=== PATIENT | female | born 1970 | race Caucasian/White ===

== ENCOUNTER 2017-11-24 09:29 | Emergency (ER) | payer BC ==
[2017-11-24] MEDS ORDERED: ONDANSETRON HCL IV 4 MG/2 ML VIAL IVP ONE (09:45)
[2017-11-24] MEDS ORDERED: CLINDAMYCIN 600MG/50ML PREMIX 600 MG/50 ML BAG IVPB ONE (09:45)
--- NOTE | 2017-11-24 09:58 | Emergency Department Record ---
History of Present Illness - General Chief complaint: Abscess Stated complaint: LUMP ON RT SHOULDER,VOMITING Time Seen by Provider: 11/24/17 09:39 Source: Patient Mode of Arrival: Ambulatory Limitations: No limitations - History of Present Illness Initial comments: The patient is here due to having an infection to the R shoulder for 3 days. She states she has a long hx of skin infections and abscesses and now feels she has another one. She did vomit once this AM and feels like she is having aching all over her body. There has been no fever, chills, AP or diarrhea. MD complaint: Abscess/boil Onset/Timin -: Days(s) Hx Tetanus Toxoid Vaccination: Yes Year of Tetanus Vaccination: 2004 Location: Generalized, RUE Severity scale (1-10): 7 Quality: Aching Consistency: Constant Improves with: None Worsens with: Palpation, Movement Context: None Associated symptoms: Denies other symptoms Treatments Prior to Arrival: None - Related Data Home Medications Medication Instructions Recorded Confirmed Last Taken Hydroxyzine HCl [Hydroxyzine HCl] 25 mg PO DAILY 11/24/17 11/24/17 Unknown Rosuvastatin Calcium [Crestor] 20 mg PO DAILY 11/24/17 11/24/17 Unknown Previous Rx's Medication Instructions Recorded Clindamycin HCl [Cleocin HCl] 300 mg PO QID #28 capsule 11/24/17 Ondansetron [Zofran Odt] 4 mg SL .Q4-6H PRN #12 tab.rapdis 11/24/17 Allergies Allergy/AdvReac Type Severity Reaction Status Date / Time latex Allergy BLISTERS Verified 11/30/15 19:53 codeine AdvReac ABDOMINAL Verified 02/02/14 02:35 CRAMPS Penicillins AdvReac HIVES Verified 02/02/14 02:35 Sulfa (Sulfonamide AdvReac ANAPHYLAXIS Verified 02/02/14 02:35 Antibiotics) Travel Screening - Travel/Exposure Within Last 30 Days Have you traveled within the last 30 days?: No Review of Systems Constitutional: Reports: Malaise. Denies: Chills, Fever Eyes: Denies: Eye discharge ENT: Denies: Congestion Respiratory: Denies: Cough Past Medical History - SOCIAL HISTORY Smoking Status: Never smoker - RESPIRATORY Hx Respiratory Disorders: Yes Hx Asthma: Yes Hx Bronchitis: Yes Hx COPD: No Hx Dyspnea: No Hx Pneumonia: Yes Hx Pulmonary Embolism: No Hx Sleep Apnea: No Hx Tuberculosis: No - CARDIOVASCULAR Hx Cardio Disorders: No - NEURO Hx Neuro Disorders: No - GI Hx GI Disorders: Yes Hx Abdominal Pain: No Hx Celiac Disease: No Hx Crohn's Disease: No Hx Diverticulitis: No Hx GI Bleed: No Hx Reflux: Yes Hx Hepatitis/Jaundice: No Hx Hiatal Hernia: No Hx Irritable Bowel: No Hx Liver Disease: No Hx Nausea/Vomiting: No Hx Obstructive Bowel: No Hx Pancreatitis: No Hx Rectal Bleeding: No Hx Ulcer: No Hx Wt Loss/Wt Gain: No - Hx Genitourinary Disorders: Yes Hx Bladder Problem: No Hx Dialysis: No Hx Kidney Stones: No Hx Renal Disease: No Hx UTI: Yes - ENDOCRINE Hx Endocrine Disorders: No - MUSCULOSKELETAL Hx Musculoskeletal Disorders: No - PSYCH Hx Psych Problems: Yes Hx Anxiety: No Hx Behavior Problems: No Hx Depression: Yes Hx Emotional Abuse: No Hx Sexual Abuse: No Hx Suicide Attempt: No - HEMATOLOGY/ONCOLOGY Hx Hematology/Oncology Disorders: No Family Medical History Any Significant Family History?: No Physical Exam - General General Appearance: Alert, Oriented x3, Cooperative, No acute distress - Head Head exam: Atraumatic, Normocephalic, Normal inspection - Eye Eye exam: Normal appearance, PERRL - Neck Neck exam: Normal inspection, Full ROM. negative: Tenderness - Respiratory Respiratory exam: Normal lung sounds bilaterally. negative: Rales, Respiratory distress, Rhonchi, Stridor, Wheezes - Cardiovascular Cardiovascular Exam: Regular rate, Normal rhythm, Normal heart sounds - GI/Abdominal GI/Abdominal exam: Soft, Normal bowel sounds. negative: Tenderness - Extremities Extremities exam: Normal inspection, Full ROM, Normal capillary refill. negative: Tenderness - Back Back exam: Denies: Normal inspection (There is a 3x4 cm area of induration and erythema and tenderness to the posterior superior R shoulder area. It clearly is NOT fluctuant at this time.) Image of Body Front/Back: 1 - Area of infection. Course Vital Signs 11/24/17 09:34 Temperature 98.6 F Pulse Rate 118 H Respiratory 20 Rate Blood Pressure 141/97 Pulse Ox 93 L - Reevaluation(s) Reevaluation #1: The patient is doing a lot better at this time. Her pain is improved and she denies any nausea or vomiting. She is drinking fluids well with no difficulty. I did explain the need to continue the oral Abx's and to return to the ER in the AM tomorrow for recheck. 11/24/17 10:56 Medical Decision Making - Data Complexity MDM Data: Labs Ordered and/or Reviewed - Lab Data Result diagrams: 11/24/17 09:50 11/24/17 09:50 Disposition Disposition: Discharge Clinical Impression: Cellulitis Qualifiers: Site of cellulitis: unspecified site Qualified Code(s): L03.90 - Cellulitis, unspecified Disposition: Home, Self-Care Condition: (2) Stable Instructions: Cellulitis (ED) Additional Instructions: The patient is to use the Zofran for nausea and take Tylenol for body aches. She is to continue the Clindamycin as directed and to return to the ER at 8am tomorrow for recheck and another dose of IV Abx's. Prescriptions: Clindamycin HCl [Cleocin HCl] 300 mg PO QID #28 capsule Ondansetron [Zofran Odt] 4 mg SL .Q4-6H PRN #12 tab.rapdis PRN Reason: Nausea Forms: Patient Portal Access Time of Disposition: 10:58 Quality - Quality Measures Quality Measures: N/A - Blood Pressure Screening View Details: Yes Does Patient Have Any of the Following: No Blood Pressure Classification: Hypertensive Reading Systolic Measurement: 141 Diastolic Measurement: 97 Screening for High Blood Pressure: < First Hypertensive BP, F/U Documented > [ G8950] First Hypertensive Follow-up Interventions: Referral to alternative/primary care provider.
[2017-11-24 10:05] LABS: BASO % 0.2 % (0-6); EOS % 2.4 % (0-6); GRAN % 75.9 % (47-80); HEMATOCRIT 42.4 % (35.0-47.0); HEMOGLOBIN 14.4 gm/dl (11.6-16.0); LYMPH % 14.8 % (16-45); MEAN CELL VOLUME 87.4 fl (81-97); MEAN CORPUSCULAR HEMOGLOBIN 29.7 pg (27-33); MEAN PLATELET VOLUME 10.4 fl (7.4-10.4); MONO % 6.7 % (0-9); PLATELET COUNT 338 K/uL (130-400); RED BLOOD COUNT 4.85 M/uL (3.80-5.40); RED CELL DISTRIBUTION WIDTH 12.9 % (11.5-14.5); WHITE BLOOD COUNT W/O DIFF 12.7 K/uL (4.2-12.2)
[2017-11-24 10:41] LABS: ALB/GLOB RATIO 1.5 (1.1-1.8); ALBUMIN 5.1 g/dL (4.0-5.0); ALKALINE PHOSPHATASE 118 U/L (35-104); ALT/SGPT 59 U/L (<33); AST/SGOT 23 U/L (10.0-35.0); BLOOD UREA NITROGEN 14 mg/dL (6-20); C-REACTIVE PROTEIN 3.07 mg/dL (<0.5); CREATININE 0.7 mg/dL (0.5-0.9); EST GLOMERULAR FILTRATION RATE > 60 mL/min; GLUCOSE,RANDOM 140 mg/dL (74-109); TOTAL PROTEIN 8.4 g/dL (6.6-8.7)
[2017-11-24] MEDS ORDERED: KETOROLAC 30 MG/ML VIAL IVP ONE (10:46)
[2017-11-24] MEDS ORDERED: 0.9 % SODIUM CHLORIDE 1,000 ML BAG IV ONE (10:46)
== END 2017-11-24 11:05 | disposition home or self-care (01) ==
LOC: ER 09:29
DX: L03.113 Cellulitis of right upper limb (principal); R11.11 Vomiting without nausea
CPT/HCPCS: 99284 ×2; 96374; 96375; 85025; 86140; 80053; J2405

== ENCOUNTER 2017-11-25 08:50 | Emergency (ER) | payer BC ==
[2017-11-25] MEDS ORDERED: CLINDAMYCIN 600MG/50ML PREMIX 600 MG/50 ML BAG IVPB ONE (09:04)
[2017-11-25] MEDS ORDERED: 0.9 % SODIUM CHLORIDE 1,000 ML BAG IV ONE (09:11)
[2017-11-25] MEDS ORDERED: ONDANSETRON HCL IV 4 MG/2 ML VIAL IVP ONE (09:11)
--- NOTE | 2017-11-25 09:16 | Emergency Department Record ---
History of Present Illness - General Chief Complaint: Recheck - Other Stated Complaint: RECHECK Time Seen by Provider: 11/25/17 09:04 Source: Patient Mode of arrival: Ambulatory Limitations: No limitations - History of Present Illness Initial Comments: The patient is here for recheck of a R shoulder cellulitis. She has been taking her Clindamycin and using warm compresses on it. There are no new symptoms and she denies any fever or chills. MD Complaint: Wound re-check Onset/Timin -: Days(s) Initial Visit For: Abscess Returns Today for: Needs IV antibiotics Symptoms Since Prior Visit: No new symptoms Associated Symptoms: None - Related Data Previous Rx's Medication Instructions Recorded Clindamycin HCl [Cleocin HCl] 300 mg PO QID #28 capsule 11/24/17 Ondansetron [Zofran Odt] 4 mg SL .Q4-6H PRN #12 tab.rapdis 11/24/17 Allergies Allergy/AdvReac Type Severity Reaction Status Date / Time latex Allergy BLISTERS Verified 11/30/15 19:53 codeine AdvReac ABDOMINAL Verified 02/02/14 02:35 CRAMPS Penicillins AdvReac HIVES Verified 02/02/14 02:35 Sulfa (Sulfonamide AdvReac ANAPHYLAXIS Verified 02/02/14 02:35 Antibiotics) Travel Screening - Travel/Exposure Within Last 30 Days Have you traveled within the last 30 days?: No Review of Systems Constitutional: Reports: Malaise. Denies: Chills, Fever Past Medical History - SOCIAL HISTORY Smoking Status: Never smoker - RESPIRATORY Hx Respiratory Disorders: Yes Hx Asthma: Yes Hx Bronchitis: Yes Hx COPD: No Hx Dyspnea: No Hx Pneumonia: Yes Hx Pulmonary Embolism: No Hx Sleep Apnea: No Hx Tuberculosis: No - CARDIOVASCULAR Hx Cardio Disorders: No - NEURO Hx Neuro Disorders: No - GI Hx GI Disorders: Yes Hx Abdominal Pain: No Hx Celiac Disease: No Hx Crohn's Disease: No Hx Diverticulitis: No Hx GI Bleed: No Hx Reflux: Yes Hx Hepatitis/Jaundice: No Hx Hiatal Hernia: No Hx Irritable Bowel: No Hx Liver Disease: No Hx Nausea/Vomiting: No Hx Obstructive Bowel: No Hx Pancreatitis: No Hx Rectal Bleeding: No Hx Ulcer: No Hx Wt Loss/Wt Gain: No - Hx Genitourinary Disorders: Yes Hx Bladder Problem: No Hx Dialysis: No Hx Kidney Stones: No Hx Renal Disease: No Hx UTI: Yes - ENDOCRINE Hx Endocrine Disorders: No - MUSCULOSKELETAL Hx Musculoskeletal Disorders: No - PSYCH Hx Psych Problems: Yes Hx Anxiety: No Hx Behavior Problems: No Hx Depression: Yes Hx Emotional Abuse: No Hx Sexual Abuse: No Hx Suicide Attempt: No - HEMATOLOGY/ONCOLOGY Hx Hematology/Oncology Disorders: No Family Medical History Any Significant Family History?: No Physical Exam - General General Appearance: Alert, Cooperative, No acute distress - Head Head exam: Atraumatic, Normocephalic - Eye Eye exam: Normal appearance, PERRL - Back Back exam: Denies: Normal inspection (There is a cellulitis measuring 4x4 cm to the superior posterior R back/shoulder area. There now is a central area of purulence coming to a head in the central portion of the wound.) Course Vital Signs 11/25/17 08:58 Temperature 99.0 F Pulse Rate 115 H Respiratory 18 Rate Blood Pressure 145/92 Pulse Ox 94 L - Reevaluation(s) Reevaluation #1: Procedure note: The central purulent area of the wound was cleansed with betadine and unroofed with a # 11 blade. A small amount of purulence was expressed and cultured. 11/25/17 09:15 Reevaluation #2: After the first procedure I did offer to anesth. the area and formally open the area up. The patient is declining that plan and would like to wait for a day or two. She is to continue the oral Abx's and warm compresses and return to the ER in 1-2 days if not better. 11/25/17 10:09 Disposition Disposition: Discharge Clinical Impression: Cellulitis Qualifiers: Site of cellulitis: unspecified site Qualified Code(s): L03.90 - Cellulitis, unspecified Disposition: Home, Self-Care Condition: (2) Stable Instructions: Cellulitis (ED) Additional Instructions: Please continue the Clindamycin as directed and use the Zofran if needed. Please see your family doctor if not better in 1-2 days and return to the ER for any worsening symptoms of pain, or for any increased redness, swelling, or fever. Forms: Patient Portal Access Time of Disposition: 10:11 Quality - Quality Measures Quality Measures: N/A - Blood Pressure Screening View Details: Yes Does Patient Have Any of the Following: No Blood Pressure Classification: Pre-Hypertensive BP Reading Systolic Measurement: 162 Diastolic Measurement: 88 Screening for High Blood Pressure: < Pre-Hypertensive BP, F/U Documented > [ G8950] Pre-Hypertensive Follow-up Interventions: Referral to alternative/primary care provider.
== END 2017-11-25 10:23 | disposition home or self-care (01) ==
LOC: ER 08:50
DX: L03.113 Cellulitis of right upper limb (principal)
CPT/HCPCS: 11042 ×2; 99283 ×2; 96374; 96375; J2405; J7030

== ENCOUNTER 2019-04-24 16:27 | Emergency (ER) | payer BC ==
--- NOTE | 2019-04-24 17:34 | Emergency Department Record ---
History of Present Illness - General Chief complaint: Extremity Problem Stated complaint: LUMP BACK RT LEG Time Seen by Provider: 04/24/19 17:20 Source: Patient Mode of Arrival: Ambulatory Limitations: No limitations - History of Present Illness Initial comments: The patient is here due to noticing pain and swelling to her R lower leg today after the dog ran into it. She denies any Cp, SOB, DENNISE, or sweating. The patient has no hx of DVT but is very concerned about it due to her sister having a hx of blood clots. MD Complaint: Extremity pain Onset/Timin -: Days(s) Location: Right, Lower Leg History of Same: No Radiation: None Quality: Burning Consistency: Constant, Intermittent Improves with: Rest Worsens with: Palpation Associated Symptoms: Denies other symptoms - Related Data Home Medications Medication Instructions Recorded Confirmed Last Taken Phentermine HCl [Adipex-P] 37.5 mg PO DAILY 04/24/19 04/24/19 04/24/19 Topiramate [Topamax] 25 mg PO DAILY 04/24/19 04/24/19 04/24/19 Allergies Allergy/AdvReac Type Severity Reaction Status Date / Time latex Allergy BLISTERS Verified 04/24/19 17:14 codeine AdvReac ABDOMINAL Verified 04/24/19 17:14 CRAMPS Penicillins AdvReac HIVES Verified 04/24/19 17:14 Sulfa (Sulfonamide AdvReac ANAPHYLAXIS Verified 04/24/19 17:14 Antibiotics) Travel Screening - Travel/Exposure Within Last 30 Days Have you traveled within the last 30 days?: No - Travel/Exposure Within Last Year Have you traveled outside the [place] in the last year?: No - Additonal Travel Details Have you been exposed to anyone with a communicable illness?: No - Travel Symptoms Symptom Screening: None Review of Systems Constitutional: Denies: Chills, Fever Eyes: Denies: Eye discharge ENT: Denies: Congestion Respiratory: Denies: Cough, Dyspnea Cardiovascular: Denies: Arrhythmia Past Medical History - SOCIAL HISTORY Smoking Status: Never smoker Alcohol Use: Occasional Drug Use: None - RESPIRATORY Hx Respiratory Disorders: Yes Hx Asthma: Yes Hx Bronchitis: Yes Hx COPD: No Hx Dyspnea: No Hx Pneumonia: Yes Hx Pulmonary Embolism: No Hx Sleep Apnea: No Hx Tuberculosis: No - CARDIOVASCULAR Hx Cardio Disorders: No - NEURO Hx Neuro Disorders: No - GI Hx GI Disorders: Yes Hx Abdominal Pain: No Hx Celiac Disease: No Hx Crohn's Disease: No Hx Diverticulitis: No Hx GI Bleed: No Hx Reflux: Yes Hx Hepatitis/Jaundice: No Hx Hiatal Hernia: No Hx Irritable Bowel: No Hx Liver Disease: No Hx Nausea/Vomiting: No Hx Obstructive Bowel: No Hx Pancreatitis: No Hx Rectal Bleeding: No Hx Ulcer: No Hx Wt Loss/Wt Gain: No - Hx Genitourinary Disorders: Yes Hx Bladder Problem: No Hx Dialysis: No Hx Kidney Stones: No Hx Renal Disease: No Hx UTI: Yes - ENDOCRINE Hx Endocrine Disorders: No - MUSCULOSKELETAL Hx Musculoskeletal Disorders: No - PSYCH Hx Psych Problems: Yes Hx Anxiety: No Hx Behavior Problems: No Hx Depression: Yes Hx Emotional Abuse: No Hx Sexual Abuse: No Hx Suicide Attempt: No - HEMATOLOGY/ONCOLOGY Hx Hematology/Oncology Disorders: No Family Medical History Any Significant Family History?: Yes Family Hx Comment (NOT TO BE USED IN PLACE OF ITEMS BELOW): Sister has blood clots Hx Diabetes: Mother, Grandparents Hx Stroke: Father Physical Exam - General General Appearance: Alert, Oriented x3, Cooperative, No acute distress - Head Head exam: Atraumatic - Eye Eye exam: Normal appearance - ENT Throat exam: Normal inspection. negative: Tonsillar erythema, Tonsillar exudate - Neck Neck exam: Normal inspection, Full ROM. negative: Tenderness - Respiratory Respiratory exam: Normal lung sounds bilaterally. negative: Respiratory distress - Cardiovascular Cardiovascular Exam: Regular rate, Normal rhythm, Normal heart sounds - Extremities Extremities exam: Full ROM, Normal capillary refill, Tenderness (There is ten derness over her varicose veins.), Other (The lower legs are NVI distally with normal pulses.). negative: Normal inspection (There are mild varicose veins to the R lateral distal thigh and proximal R lateral lower leg. ), Calf tenderness (There is no R calf or medial R thigh tenderness.), Joint swelling Image of Full Body: 1 - Area of superficial clot and tenderness. - Neurological Neurological exam: Alert, Normal gait. negative: Abnormal gait, Motor sensory deficit Course Vital Signs 04/24/19 17:19 Temperature 98.7 F Pulse Rate 91 H Respiratory 16 Rate Blood Pressure 153/105 Pulse Ox 98 - Reevaluation(s) Reevaluation #1: The patient is doing very well at this time. She denies any new symptoms. I did discuss the neg Doppler with the patient. She is to use an NSAID for pain and to use warm compresses on the leg during the day. 04/24/19 19:28 Medical Decision Making - Data Complexity MDM Data: X-Ray Ordered and/or Reviewed - Radiology Data Radiology results: Report reviewed (R leg Venous Doppler: neg for DVT.) Disposition Disposition: Discharge Clinical Impression: Superficial thrombophlebitis Qualifiers: Superficial thrombophlebitis-Involved body area: lower extremity Laterality: right Qualified Code(s): I80.01 - Phlebitis and thrombophlebitis of superficial vessels of right lower extremity Disposition: Home, Self-Care Condition: (2) Stable Instructions: Superficial Thrombophlebitis (ED) Additional Instructions: Please use Motrin or Advil for pain and use warm compresses on the R leg varicose veins when possible. Please see your family doctor for recheck and to possibly have an outpatient doppler ordered next week if not better. Return to the ER for any worsening symptoms. Forms: Patient Portal Access Time of Disposition: 19:31 Quality - Quality Measures Quality Measures: N/A - Blood Pressure Screening View Details: Yes Does Patient Have Any of the Following: Active Dx of HTN Blood Pressure Classification: Hypertensive Reading Systolic Measurement: 153 Diastolic Measurement: 105 Screening for High Blood Pressure: Patient Exclusion, Hx of HTN [G9744]
--- NOTE | 2019-04-25 12:46 | US VENOUS DOPPLER REPORT ---
EXAM: EMERGENCY RIGHT LOWER EXTREMITY VENOUS DOPPLER ULTRASOUND HISTORY: RIGHT LOWER LEG PAIN, POSSIBLE DVT. TECHNIQUE: Emergency venous Doppler ultrasound of the right lower extremity was performed with color flow and spectral analysis Doppler. Compression and flow augmentation was performed as well. Comparison: No prior venous Doppler ultrasound of the right lower extremity. FINDINGS: No definite DVT identified in the right lower extremity. Flow is seen throughout with color flow and spectral analysis Doppler. Compression and flow augmentation evident as well throughout the deep venous structures of the right lower extremity. The left external iliac and common femoral veins were also briefly evaluated at no additional charge and also appear negative with no DVT in these structures. The dietitian chief did note some superficial nonoccluding thrombus in the right lower extremity in the area of pain. IMPRESSION: 1. NO DEFINITE DVT IDENTIFIED IN THE RIGHT LOWER EXTREMITY. 2. A SMALL AMOUNT OF SUPERFICIAL NONOCCLUDING THROMBUS WAS NOTED IN THE RIGHT LOWER EXTREMITY IN THE AREA OF THE PATIENT'S CLINICAL DESCRIPTION OF PAIN. JOB NUMBER: [id number] MTDD
== END 2019-04-24 19:35 | disposition home or self-care (01) ==
LOC: ER 16:27
DX: I80.01 Phlebitis and thrombophlebitis of superficial vessels of right lower extremity (principal); I10 Essential (primary) hypertension
CPT/HCPCS: 99283